=== PATIENT | male | born 1960 | race Caucasian/White ===

== ENCOUNTER 2016-09-05 13:10 | Emergency (ER) | payer OTHER ==
[~2016-09-05] VITALS: Wt 71.0 kg
[~2016-09-05 13:10] MED LIST: LORA1TAB PO; ZOF8 PO
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
--- NOTE | 2016-09-05 14:52 | RADRPT ---
PROCEDURE: CT brain without contrast CLINICAL INDICATION: Head trauma/injury TECHNIQUE: CT of the brain without contrast performed on a multidetector CT scanner, with multiplan ar reformats. One or more of the following dose reduction techniques were used: Automated exposure control, adjustment in mA and / or kV according to patient size, use of iterative reconstructive stephnaie hnique. CTDIvol = 51 mGy; DLP = 716 mGy-cm. COMPARISON: None available FINDINGS: No acute intracranial hemorrhage is identified. No extra-axial fluid collection is seen. There is no mass effect. No midline shift is identified. Ventricles and sulci are mildly enlarged compatible with generalized volume loss. The density of the brain is unremarkable. Mcmanus-white differentiation is preserved. Osseous structures are unremarkable. Mastoid air cells and imaged paranasal sinuses grossly clear. IMPRESSION: 1. No evidence of acute intracranial pathology. 2. Mild generalized volume loss. RPTAT: HESO .Nestor Pepper MD, Date Time Electronically viewed and signed by .Nestor Pepper MD, MD on 09/05/2016 14:51 .O/
--- NOTE | 2016-09-05 14:57 | RADRPT ---
PROCEDURE: CT face without contrast CLINICAL INDICATION: Face trauma/injury TECHNIQUE: CT of the face without contrast was performed on a multidetector CT scanner, with multip lanar reformats. One or more of the following dose reduction techniques were used: Automated exposu re control, adjustment in mA and / or kV according to patient size, use of iterative reconstructive technique. CTDIvol = 30 mGy and DLP = 595 mGy-cm. COMPARISON: None available. FINDINGS: No fracture is identified. There is no temporomandibular joint dislocation. The orbital structures are unremarkable. Mild mucosal thickening is seen in the anterior ethmoid air cells and right fron liz recess, and minimal mucosal thickening is seen in the bilateral maxillary sinuses. Noted are sc attered dental caries. No focal soft tissue hematoma, gas or radiopaque foreign body is identified. IMPRESSION: 1. No facial fracture/dislocation or orbital injury identified. 2. Paranasal sinus mucosal disease and dental disease described above. RPTAT: HESO .Nestor Pepper MD, MD Date Time Electronically viewed and signed by .Nestor Pepper MD, on 09/05/2016 14:57 .O/
[2016-09-05 15:18] VITALS: BP 122/72; PULSE 80; RESP 18; TEMP 98
== END 2016-09-05 15:33 | disposition home or self-care (01) ==
LOC: E/R 13:10
DX: S09.90XA Unspecified injury of head, initial encounter (principal); F10.120 Alcohol abuse with intoxication, uncomplicated; G93.89 Other specified disorders of brain; Y04.0XXA Assault by unarmed brawl or fight, initial encounter
CPT/HCPCS: 70450; 70486; Z7502

== ENCOUNTER 2016-11-24 16:11 | Emergency (ER) | payer OTHER ==
[~2016-11-24] VITALS: Ht 167.6 cm; Wt 71.5 kg
[2016-11-24 16:16] VITALS: Ht 167.6 cm; Wt 71.5 kg
[2016-11-24] MEDS ORDERED: ONDANSETRON 4 MG INJ IV STA (18:24)
[2016-11-24] MEDS ORDERED: morphine 4 MG/ML VIAL IV STA (18:24)
--- NOTE | 2016-11-24 19:41 | RADRPT ---
PROCEDURE: US Scrotum and Testicles. CLINICAL INDICATION: Testicular pain. TECHNIQUE: Multiple sonographic images of the scrotal region were obtained utilizing a linear arra y transducer with grayscale and color-flow and a Doppler imaging. The images were reviewed on a high -resolution PACS workstation. COMPARISON: No prior studies are available for comparison. FINDINGS: The right testicle measures 4.4 x 2.4 x 3.1 cm. The left testicle measures 4.1 x 2.2 x 3.4 cm. A f ew small microliths are seen scattered in both testicles. The right testicle demonstrates a normal vascularity. Imaging of left testicular vascularity was not performed in this study. The right epididymis measures 1.0 cm in length. The left epididymis measures 1.1 cm in length. T he epididymi have an unremarkable appearance. Small potential varicoceles are seen bilaterally. Bowel seen in the left lower quadrant of the abdomen. IMPRESSION: Imaging of left testicular vascularity not performed in the study. If there is concern for a vascul ar abnormality of the left testicle or testicular torsion, repeat exam to document Doppler vasculari ty in the left testicle is recommended. Small calcified microliths in both testicles. Repeat exam in 6 months - 1 year to assess stability is recommended. Small potential varicoceles bilaterally. RPTAT: AA .Miller Emanuel MD, MD Date Time Electronically viewed and signed by .Miller Emanuel MD, MD on 11/24/2016 19:41 .P/
--- NOTE | 2016-11-24 19:58 | RADRPT ---
PROCEDURE: CT Abdomen and Pelvis without contrast. CLINICAL INDICATION: Abdominal / testicular pain, possible hernia. TECHNIQUE: CT scan of the abdomen without contrast was performed on a multi-slice CT scanner. Cor onal and sagittal reformatted images were obtained from the axial source images. 1 or more of the f ollowing dose reduction techniques were utilized: Automated exposure control, adjustment of the mA and/or kV according to patient's size, iterative reconstruction technique. The images were reviewed on a high-resolution PACS workstation. RADIATION DOSE: CTDIvol: 9.8 mGyDLP: 603.4 mGy-cm COMPARISON: None available FINDINGS: Limited visualization of the inferior thorax is unremarkable. There is a small hiatal hernia. The liver is normal in size and density without focal mass or intrahepatic biliary dilatation. There is a well-circumscribed hypodensity in the right hepatic lobe measuring 10 mm (axial series image 36), 10 mm lesion in the right inferior hepatic lobe tip (axial series image 61), with smaller 5 mm lesi on in the medial right hepatic lobe (axial series image 33) and 4 mm lesion in the right hepatic dom e (axial series image 20). The spleen, adrenal glands, gallbladder, extrahepatic common bile duct a nd pancreas are normal in appearance. The kidneys are normal in appearance. There is no evidence o f nephrolithiasis or hydronephrosis. There is no periaortic, iliac or inguinal lymphadenopathy. The aorta is normal in appearance. There is a prominent direct left inguinal hernia, measuring approximately 3.1 cm, with herniated loo p of descending/sigmoid colon within the hernia. There is no evidence of obstruction at this time. There is no significant stranding of the underlying fat within the hernia defect. The remaining co marilee is normal in appearance without evidence of asymmetric wall thickening, mass or dilatation. The small bowel is unremarkable. There is no mesenteric lymphadenopathy. The appendix is visualized a nd normal in appearance (axial series image 107). The prostate and seminal vesicles are normal in a ppearance The bladder is partially contracted but otherwise normal in appearance. The lower thorac ic and lumbar spines demonstrate mild degenerative changes, with mild right convex scoliosis centere d at L4. No lytic or blastic lesions are seen. There is a healing fracture involving the posterior 11th rib (axial series image 50) with prominent callous formation. No additional rib fractures are identified.. The soft tissues are normal in appearance. IMPRESSION: 1. Large 3.1 cm left direct inguinal hernia, with herniation of the descending/sigmoid colon throug h the hernia defect. No evidence of obstruction at this time. There is no significant stranding to suggest strangulation/incarceration at this time. 2. No mass, lymphadenopathy, or focal acute inflammatory process is identified. 3. Healing posterior left 11th rib fracture. 4. Multiple small hypodensities throughout the liver, which are nonspecific. These may be related to a small benign hepatic cyst versus hemangiomas. The above findings were discussed with Patient's physician RAJWINDER Khan PA-C by telephone on 7:56:11 PM. RPTAT: HGAS .Mark Green MD, Date Time Electronically viewed and signed by .Mark Green MD, on 11/24/2016 19:58 .S/
--- NOTE | 2016-11-24 20:00 | ERD ---
ER Documentation Chief Complaint Date/Time DATE: 11/24/16 TIME: 19:56 Chief Complaint BIB SELF C/O PAIN IN THE TESTICLE X 10 MONTHS HX OF HERNIA HPI This a 56-year-old male who presents to the emergency department today complaining of left-sided abdominal pain and left testicular pain for more than a year but worse over the past week. States he was told he had a hernia in the past. States he was supposed to have surgery but surgery kept getting moved and he never had it. States he was told to come to the emergency room of his pain got too bad. Denies any fevers or chills, nausea vomiting or diarrhea. ROS All systems reviewed and are negative except as per history of present illness. Medications Home Meds Active Scripts Ondansetron Hcl* (Zofran* ODT) 8 mg -ODT Tab.disper, 8 MG PO Q6 Y for NAUSEA AND /OR VOMITING, #12 TAB Prov:TRINA POPE MD 12/06/15 Lorazepam* (Lorazepam*) 1 Mg Tablet, 1 MG PO Q6, #14 TAB Prov:TRINA POPE MD 12/06/15 Allergies Allergies: Coded Allergies: No Known Allergy (Unverified , 12/06/15) PMhx/Soc Medical and Surgical Hx: pt denies Medical Hx History of Surgery: Yes (L knee sx 2006) Hx Alcohol Use: Yes Hx Substance Use: No Hx Tobacco Use: No Smoking Status: Never smoker Physical Exam Vitals Vital Signs Date Time Temp Pulse Resp B/P Pulse Ox O2 Delivery O2 Flow Rate FiO2 11/24/16 16:16 98.8 103 18 114/84 97 Physical Exam Const: No acute distress Head: Atraumatic Eyes: Normal Conjunctiva ENT: Normal External Ears, Nose and Mouth. Neck: Full range of motion..~ No meningismus. Resp: Clear to auscultation bilaterally Cardio: Regular rate and rhythm, no murmurs Abd: Soft, left lower quadrant tenderness with firmness, non distended. Normal bowel sounds. No right lower quadrant pain. No tenderness McBurney's. : Uncircumcised penis. Testicles descended bilaterally with evidence of hernia Skin: No petechiae or rashes Back: No midline or flank tenderness Ext: No cyanosis, or edema Neur: Awake and alert Psych: Normal Mood and Affect Results 24 hrs Current Medications Medications (Trade) Dose Ordered Sig/Natali Route PRN Reason Start Time Stop Time Status Last Admin Dose Admin Morphine Sulfate (morphine) 4 mg ONCE STAT IV 11/24/16 18:24 11/24/16 18:26 DC 11/24/16 19:56 Ondansetron HCl (Zofran Inj) 4 mg ONCE STAT IV 11/24/16 18:24 11/24/16 18:26 DC 11/24/16 19:56 DIAGNOSTIC IMAGING REPORT Patient: ILANA POWERS : 1960 Age: 56 Sex: M MR #: [id number] DOS: 11/24/16 0000 Ordering MD: TRISH PURDY PA-C [facility] Room/Bed: PROCEDURE: US Scrotum and Testicles. CLINICAL INDICATION: Testicular pain. TECHNIQUE: Multiple sonographic images of the scrotal region were obtained utilizing a linear array transducer with grayscale and color-flow and a Doppler imaging. The images were reviewed on a high-resolution PACS workstation. COMPARISON: No prior studies are available for comparison. FINDINGS: The right testicle measures 4.4 x 2.4 x 3.1 cm. The left testicle measures 4.1 x 2.2 x 3.4 cm. A few small microliths are seen scattered in both testicles. The right testicle demonstrates a normal vascularity. Imaging of left testicular vascularity was not performed in this study. The right epididymis measures 1.0 cm in length. The left epididymis measures 1.1 cm in length. The epididymi have an unremarkable appearance. Small potential varicoceles are seen bilaterally. Bowel seen in the left lower quadrant of the abdomen. IMPRESSION: Imaging of left testicular vascularity not performed in the study. If there is concern for a vascular abnormality of the left testicle or testicular torsion, repeat exam to document Doppler vascularity in the left testicle is recommended. Small calcified microliths in both testicles. Repeat exam in 6 months - 1 year to assess stability is recommended. Small potential varicoceles bilaterally. RPTAT: AA .Miller Emanuel MD, MD Date Time Electronically viewed and signed by .Miller Emanuel MD, MD on 11/24/2016 19:41 .P/ CC: TRISH PURDY PA-C DIAGNOSTIC IMAGING REPORT Patient: ILANA POWESR : 1960 Age: 56 Sex: M MR #: [id number] DOS: 11/24/16 1824 Ordering MD: TRISH PURDY PA-C [facility] Room/Bed: PROCEDURE: CT Abdomen and Pelvis without contrast. CLINICAL INDICATION: Abdominal / testicular pain, possible hernia. TECHNIQUE: CT scan of the abdomen without contrast was performed on a multi- slice CT scanner. Coronal and sagittal reformatted images were obtained from the axial source images. 1 or more of the following dose reduction techniques were utilized: Automated exposure control, adjustment of the mA and/or kV according to patient's size, iterative reconstruction technique. The images were reviewed on a high-resolution PACS workstation. RADIATION DOSE: CTDIvol: 9.8 mGy DLP: 603.4 mGy-cm COMPARISON: None available FINDINGS: Limited visualization of the inferior thorax is unremarkable. There is a small hiatal hernia. The liver is normal in size and density without focal mass or intrahepatic biliary dilatation. There is a well-circumscribed hypodensity in the right hepatic lobe measuring 10 mm (axial series image 36), 10 mm lesion in the right inferior hepatic lobe tip (axial series image 61), with smaller 5 mm lesion in the medial right hepatic lobe (axial series image 33) and 4 mm lesion in the right hepatic dome (axial series image 20). The spleen, adrenal glands, gallbladder, extrahepatic common bile duct and pancreas are normal in appearance. The kidneys are normal in appearance. There is no evidence of nephrolithiasis or hydronephrosis. There is no periaortic, iliac or inguinal lymphadenopathy. The aorta is normal in appearance. There is a prominent direct left inguinal hernia, measuring approximately 3.1 cm , with herniated loop of descending/sigmoid colon within the hernia. There is no evidence of obstruction at this time. There is no significant stranding of the underlying fat within the hernia defect. The remaining colon is normal in appearance without evidence of asymmetric wall thickening, mass or dilatation. The small bowel is unremarkable. There is no mesenteric lymphadenopathy. The appendix is visualized and normal in appearance (axial series image 107). The prostate and seminal vesicles are normal in appearance The bladder is partially contracted but otherwise normal in appearance. The lower thoracic and lumbar spines demonstrate mild degenerative changes, with mild right convex scoliosis centered at L4. No lytic or blastic lesions are seen. There is a healing fracture involving the posterior 11th rib (axial series image 50) with prominent callous formation. No additional rib fractures are identified.. The soft tissues are normal in appearance. IMPRESSION: 1. Large 3.1 cm left direct inguinal hernia, with herniation of the descending/ sigmoid colon through the hernia defect. No evidence of obstruction at this time. There is no significant stranding to suggest strangulation/incarceration at this time. 2. No mass, lymphadenopathy, or focal acute inflammatory process is identified. 3. Healing posterior left 11th rib fracture. 4. Multiple small hypodensities throughout the liver, which are nonspecific. These may be related to a small benign hepatic cyst versus hemangiomas. The above findings were discussed with Patient's physician RAJWINDER Real by telephone on 11/24/2016 7:56:11 PM. RPTAT: HGAS .Mark Green MD, MD Date Time Electronically viewed and signed by .Mark Green MD, on 11/24/2016 19: 58 .S/ CC: TRISH PURDY PA-C Procedures/[facility] This 56-year-old male who presents to the emergency department today complaining of left-sided abdominal pain and testicular pain is been ongoing for greater than a year. Patient was told that he had a hernia in the past and was supposed to have surgery but did not ever have it done. Now he presents with increased pain and increased swelling. Given the patient's physical exam I did obtain laboratory work as well as imaging. Laboratory work was pending at time of signout to Dr. Morin Ultrasound shows bowel seen in the left lower quadrant of the abdomen. Small potential varicoceles bilaterally. There is small calcified microliths in both testicles. Imaging of the left testicular vascularity was not performed in this study. CT abdomen pelvis without contrast shows a large 3.1 cm left direct inguinal hernia with herniation of the descending sigmoid colon through the hernial defect. There is no evidence of obstruction at this time there is significant stranding to suggest regulation incarceration at this time. There is no mass, lymphadenopathy or focal acute inflammatory process. There is a healing posterior left 11th rib fracture. There are multiple small hypodensities throughout the liver which are nonspecific may be related to small benign hepatic cyst versus hemangiomas. I did receive a call regarding the patient from the radiologist Dr. Green. Patient symptoms at this time consistent with hernia with concern for possible strangulation given the amount of bowel loop through the hernia defect. Discussed the patient with Dr. Morin in regards to radiology findings he feels it is best to admit the patient at this time. Dr. Morin has placed a call to the surgeon on-call Dr. Daly. Patient was given Zofran and morphine here in the emergency department. Any further orders placed will be completed by Dr. Morin or the admitting physician. Departure Diagnosis: Primary Impression: Hernia Additional Impression: Pain in testicle Condition: TRISH Shepherd PA-C Nov 24, 2016 20:00
[2016-11-24 20:08] LABS: ADD SCAN DIFF NO
[2016-11-24 20:14] LABS: BASOPHIL # 0.1 10^3/ul (0.0-0.1); BASOPHILS % 0.6 % (0.0-2.0); EOSINOPHILS # 0.1 10^3/ul (0.0-0.5); EOSINOPHILS % 1.3 % (0.0-7.0); HEMATOCRIT 42.9 % (42.0-52.0); HEMOGLOBIN 14.7 g/dl (14.0-18.0); LYMPHOCYTES # 1.9 10^3/ul (0.8-2.9); LYMPHOCYTES % 22.7 % (15.0-51.0); MEAN CORPUSCULAR HEMOGLOBIN 31.7 pg (29.0-33.0); MEAN CORPUSCULAR HGB CONC 34.3 g/dl (32.0-37.0); MEAN CORPUSCULAR VOLUME 92.5 fl (82.0-101.0); MEAN PLATELET VOLUME 11.4 fl (7.4-10.4); MONOCYTE # 0.6 10^3/ul (0.3-0.9); MONOCYTES % 6.9 % (0.0-11.0); NEUTROPHIL # 5.7 10^3/ul (1.6-7.5); NEUTROPHILS % 67.5 % (39.0-77.0); PLATELET COUNT 351 10^3/UL (140-415); RED BLOOD COUNT 4.64 10^6/ul (4.70-6.10); RED CELL DISTRIBUTION WIDTH 11.5 % (11.5-14.5); WHITE BLOOD COUNT 8.4 10^3/ul (4.8-10.8)
[2016-11-24 20:29] LABS: ADD UMIC NO; UR BILIRUBIN (Dip) NEGATIVE (NEGATIVE); UR BLOOD (Dip) NEGATIVE (NEGATIVE); UR CLARITY CLEAR (CLEAR); UR COLOR LT. YELLOW (YELLOW); UR GLUCOSE (Dip) NEGATIVE (NEGATIVE); UR KETONES (Dip) NEGATIVE (NEGATIVE); UR LEUKOCYTE ESTERASE (Dip) NEGATIVE (NEGATIVE); UR NITRITE (Dip) NEGATIVE (NEGATIVE); UR TOTAL PROTEIN (Dip) NEGATIVE (NEGATIVE); UR UROBILINOGEN (Dip) 0.2 E.U./dL (0.1-1.0)
[2016-11-24 20:36] LABS: ALBUMIN/GLOBULIN RATIO 1.56; CALCIUM 10.1 mg/dl (8.4-10.2); CREATININE 0.8 mg/dl (0.61-1.24); TOTAL PROTEIN 8.2 g/dl (6.1-8.1)
[2016-11-24] MEDS ORDERED: DOCU-144 PO (20:57)
[2016-11-24] MEDS ORDERED: HYDR-902 PO (20:57)
[2016-11-24 21:08] VITALS: BP 146/84; PULSE 63; RESP 16; TEMP 98.6
== END 2016-11-24 21:10 | disposition home or self-care (01) ==
LOC: FTE 16:11
DX: K40.90 Unilateral inguinal hernia, without obstruction or gangrene, not specified as recurrent (principal)
CPT/HCPCS: 36415; 74176; 76870; 80053; 81003; 83605; 83690; 85025; 96374; 96375; J2270; J2405; Z7502

== ENCOUNTER 2017-03-29 08:49 | Day surgery (SDC) | payer OTHER ==
[~2017-03-29] VITALS: Ht 167.6 cm; Wt 70.9 kg
[2017-03-29] VITALS (9 sets, daily range): BP systolic 100–122; BP diastolic 52–90; PULSE 58–81; RESP 11–18; Ht 167.6 cm; Wt 70.9 kg
[~2017-03-29 08:49] MED LIST changes: +CEFAZOLIN 1 GM/50 ML (PMX) 50 ML IVPB SCH; +DOCU-144 PO; +HYDR-902 PO
[2017-03-29] MEDS ORDERED: SOD CHLORIDE 0.9% 1,000 ML IV SCH (10:30)
[2017-03-29] MEDS ORDERED: PROPOFOL 20 ML ONE (10:53)
[2017-03-29] MEDS ORDERED: LIDOCAINE 2% (SDV) 5 ML INJ ONE (10:53)
[2017-03-29] MEDS ORDERED: MIDAZOLAM 1 MG/ML 2 ML INJ ONE (10:54)
[2017-03-29] MEDS ORDERED: FENTAnyl 50 MCG/ML VIAL ONE (10:54)
[2017-03-29] MEDS ORDERED: BUPIVACAINE 0.25% (MPF) 30 ML INJ ONE (11:13)
[2017-03-29] MEDS ORDERED: ONDANSETRON 4 MG INJ ONE (11:47)
[2017-03-29] MEDS ORDERED: CEFAZOLIN 1 GM INJ ONE (11:47)
[2017-03-29] MEDS ORDERED: METOCLOPRAMIDE 10 MG INJ ONE (11:47)
[2017-03-29] MEDS ORDERED: POLYMYXIN/BACITRACIN 1L IRRIG ONE (11:53)
[2017-03-29] MEDS ORDERED: HYDROmorphONE 2 MG/ML SYG ONE (12:07)
--- NOTE | 2017-03-29 12:37 | OPR ---
Date/Time of Note Date/Time of Note DATE: 03/29/17 TIME: 12:34 Operative Report Procedure Date: Mar 29, 2017 Preoperative Diagnosis large incarcerated left inguinal hernia Postoperative Diagnosis large incarcerated left inguinal hernia Operation/Procedure Performed 1. open incarcerated left inguinal hernia repair with large ultrapro hernia system mesh 2. therapeutic injection of subcutaneous local anesthesia Surgeon see signature line Open Developer Operator none Anesthesia Type: general Estimated Blood Loss: 10 - 50 ml's Transfusion none Specimen none Grafts/Implants none Complications none Pt Condition Post Procedure: stable Indications This is a 56-year-old male with a large incarcerated left inguinal hernia. He requests surgical repair. Risks alternatives benefits and percent were discussed the patient. Patient expressed understanding and consents to the operation. Procedure Description Patient taken to the OR and prepped and draped in usual sterile fashion. Surgical timeout was performed. IV antibiotics given. Left inguinal oblique incision is made with a 10 blade. Dissection cautery was carried onto the extremity fascia. The external oblique fascia is open with a 15 blade. This incision is extended medially inferiorly lateral superiorly with Metzenbaum scissors. Cord structure and I identified. Very large incarcerated hernia was identified and manually reduced from the scrotum. There was a large indirect hernia. The hernia sac was identified and opened the contents were then reduced manually. The hernia sac was then suture ligated with 0 Vicryl suture. The distal portion was then used to bolster this area with a running 0 Prolene to the pubic tubercle along the shelving of the inguinal ligament. And superiorly to the internal bleeding the mesh was secured with interrupted 3-0 Vicryl. Onlay mesh is secured in similar fashion with a running 0 Prolene from the pubic tubercle along the shelving edge of the inguinal ligament. Superiorly the onlay mesh is secured to intra-oblique with interrupted 3-0 Vicryl. Strep screen reapproximate around the cord structures to re-create the inguinal ring with 0 Prolene. Externally fascia was closed with running 3-0 Vicryl. Ramon's fascia is closed with interrupted 3-0 Vicryl. Skin is closed and skin chrissy. Therapeutic subcutaneous local anesthesia was injected throughout the incision site. Dry dressings were applied. Jacinto RENAE Mar 29, 2017 12:37
[2017-03-29] MEDS ORDERED: MEPERIDINE 25 MG INJ IV PRN (13:00)
[2017-03-29] MEDS ORDERED: DIPHENHYDRAMINE 50 MG INJ IV PRN (13:00)
[2017-03-29] MEDS ORDERED: PROCHLORPERAZINE 10 MG INJ IV PRN (13:00)
[2017-03-29] MEDS ORDERED: HYDROCODONE/APAP (5/325) TAB PO ONE (13:00)
[2017-03-29] MEDS ORDERED: FENTAnyl 50 MCG/ML VIAL IV PRN (13:00)
[2017-03-29] MEDS ORDERED: ONDANSETRON 4 MG INJ IV PRN (13:00)
[2017-03-29] MEDS ORDERED: OXYCODONE/ACETAMINOPHEN (5/325) TAB PO PRN ×2 (13:00)
[2017-03-29] MEDS ORDERED: TRIMETHOBENZAMIDE 100 MG/ML VIAL IM PRN (13:00)
== END 2017-03-29 14:00 | disposition home or self-care (01) ==
LOC: SDS 08:49
PROVIDERS: ATTEND Surgery
DX: K40.30 Unilateral inguinal hernia, with obstruction, without gangrene, not specified as recurrent (principal)
CPT/HCPCS: 49507; C1781; J0690; J1170; J2250; J2405; J2765; J3010; Z7512; Z7610

== ENCOUNTER 2017-05-03 09:18 | Day surgery (SDC) | payer OTHER ==
[~2017-05-03] VITALS: Ht 165.1 cm; Wt 70.6 kg
[2017-05-03] VITALS (11 sets, daily range): BP systolic 106–138; BP diastolic 71–89; PULSE 68–92; RESP 15–49; Ht 165.1 cm; Wt 70.6 kg
[~2017-05-03 09:18] MED LIST changes: -CEFAZOLIN 1 GM/50 ML (PMX) 50 ML IVPB SCH; +CEFAZOLIN 2 GM/50 ML (PMX) 50 ML IVPB SCH; -DOCU-144 PO; -HYDR-902 PO; -LORA1TAB PO; +SOD CHLORIDE 0.9% 1,000 ML IV SCH; -ZOF8 PO
[2017-05-03 10:47] LABS: ALBUMIN 3.5 g/dl (3.3-4.9); ALBUMIN/GLOBULIN RATIO 1.25; BILIRUBIN,INDIRECT 0.8 mg/dl (0-1.1); BILIRUBIN,TOTAL 0.8 mg/dl (0.2-1.3); CALCIUM 8.9 mg/dl (8.4-10.2); CREATININE 0.8 mg/dl (0.61-1.24); POTASSIUM 4.1 mmol/L (3.5-5.1); TOTAL PROTEIN 6.3 g/dl (6.1-8.1)
[2017-05-03 10:50] LABS: BASOPHILS % 0.4 % (0.0-2.0); EOSINOPHILS # 0.1 10^3/ul (0.0-0.5); EOSINOPHILS % 1.9 % (0.0-7.0); HEMATOCRIT 38.4 % (42.0-52.0); HEMOGLOBIN 13.2 g/dl (14.0-18.0); LYMPHOCYTES # 1.7 10^3/ul (0.8-2.9); LYMPHOCYTES % 25.1 % (15.0-51.0); MEAN CORPUSCULAR HGB CONC 34.4 g/dl (32.0-37.0); MEAN CORPUSCULAR VOLUME 84.4 fl (82.0-101.0); MEAN PLATELET VOLUME 10.9 fl (7.4-10.4); MONOCYTE # 0.4 10^3/ul (0.3-0.9); MONOCYTES % 5.9 % (0.0-11.0); NEUTROPHIL # 4.5 10^3/ul (1.6-7.5); NEUTROPHILS % 66.3 % (39.0-77.0); PLATELET COUNT 219 10^3/UL (140-415); RED BLOOD COUNT 4.55 10^6/ul (4.70-6.10); RED CELL DISTRIBUTION WIDTH 11.2 % (11.5-14.5); WHITE BLOOD COUNT 6.8 10^3/ul (4.8-10.8)
[2017-05-03 11:00] LABS: INR 1.01; PROTIME 13.3 Sec (12.2-14.2)
[2017-05-03] MEDS ORDERED: POLYMYXIN/BACITRACIN 1L IRRIG ONE (11:48)
[2017-05-03] MEDS ORDERED: BUPIVACAINE 0.25% (MPF) 30 ML INJ ONE (11:48)
[2017-05-03] MEDS ORDERED: ROCURONIUM 50 MG INJ ONE (11:53)
[2017-05-03] MEDS ORDERED: PROPOFOL 20 ML ONE (11:53)
[2017-05-03] MEDS ORDERED: LIDOCAINE 2% (SDV) 5 ML INJ ONE (11:54)
[2017-05-03] MEDS ORDERED: KETOROLAC 30 MG INJ IV PRN (12:00)
[2017-05-03] MEDS ORDERED: FENTAnyl 50 MCG/ML VIAL IV PRN ×3 (12:00)
[2017-05-03] MEDS ORDERED: DIPHENHYDRAMINE 50 MG INJ IV PRN (12:00)
[2017-05-03] MEDS ORDERED: MIDAZOLAM 1 MG/ML 2 ML INJ IV PRN (12:00)
[2017-05-03] MEDS ORDERED: EPHEDrine SULFATE 50 MG/5 ML SYG IV PRN (12:00)
[2017-05-03] MEDS ORDERED: MEPERIDINE 25 MG INJ IV PRN (12:00)
[2017-05-03] MEDS ORDERED: HYDROmorphONE (0.2 MG/ML) 10ML SYG IV PRN ×2 (12:00)
[2017-05-03] MEDS ORDERED: OXYCODONE/ACETAMINOPHEN (5/325) TAB PO PRN ×2 (12:00)
[2017-05-03] MEDS ORDERED: METOCLOPRAMIDE 10 MG INJ IV PRN (12:00)
[2017-05-03] MEDS ORDERED: LABETALOL HCL 20MG INJ IV PRN (12:00)
[2017-05-03] MEDS ORDERED: hydrALAzine 20 MG INJ IV PRN (12:00)
[2017-05-03] MEDS ORDERED: LORAZEPAM 2 MG INJ IV PRN (12:00)
[2017-05-03] MEDS ORDERED: ONDANSETRON 4 MG INJ IV PRN (12:00)
[2017-05-03] MEDS ORDERED: LABETALOL HCL 20MG INJ ONE (12:25)
[2017-05-03] MEDS ORDERED: SUGAMMADEX SODIUM 200 MG/2 ML VIAL IV ONE (13:03)
--- NOTE | 2017-05-03 13:07 | OPR ---
Date/Time of Note Date/Time of Note DATE: 05/03/17 TIME: 13:03 Operative Report Procedure Date: May 03, 2017 Preoperative Diagnosis incarcerated ventral hernia Postoperative Diagnosis same Operation/Procedure Performed 1. laparoscopic ventral hernia repair cpt code 49136 2. intraabdominal mesh implantation cpt code 97003 3. 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 He requests surgical repair. Risks alternatives benefits and percent were discussed the patient. Patient expressed understanding consents to the operation. Procedure Description Patient taken to the OR and prepped and draped in usual sterile fashion. Surgical timeout was performed. IV antibiotics given. Left upper quadrant 5 mm transverse incision is made with a 15 blade. Using a 5 mm optical trocar optical entry is performed. Pneumoperitoneum is established left flank 12 mm optical trocar left lower quadrant 5 mm optical trochars are placed under direct visualization. Upon initial inspection there is a incarcerated hernia defect. Using laparoscopic harmonic florencia incarcerated contents were reduced and excised. There is good hemostasis. The hernia defect was identified and closed with interrupted #1 Prolene using Endo Close and laparoscopic techniques. Underlay mesh with approximately 4-5 cm of coverage in all direction was secured with ventral light ST. secure strap. There is good hemostasis. Ports removed under direct visualization skin was closed using skin chrissy. Therapeutic contains local anesthesia was injected throughout the incision site. Mesh was secured with Jacinto RENAE May 03, 2017 13:07
[2017-05-03] MEDS: HYDROmorphONE (0.2 MG/ML) 10ML SYG IV PRN ×2 (13:21→13:31)
[2017-05-03] MEDS ORDERED: HYDROCODONE/APAP (5/325) TAB PO ONE (13:30)
== END 2017-05-03 14:51 | disposition home or self-care (01) ==
LOC: SDS 09:18
PROVIDERS: ATTEND Surgery
DX: K43.6 Other and unspecified ventral hernia with obstruction, without gangrene (principal)
CPT/HCPCS: 49653; 80053; 85025; 85610; 85730; C1781; J1170; J2175; J2405; J3010; Z7512; Z7610

== ENCOUNTER 2017-06-28 13:19 | Emergency (ER) | END 2017-06-28 22:57 | disposition left against medical advice (07) ==

== ENCOUNTER 2017-10-21 11:01 | Day surgery (SDC) | END 2017-10-21 15:15 | disposition home or self-care (01) ==